=== PATIENT | male | born 1950 | race Caucasian/White ===

== ENCOUNTER 2020-05-03 11:22 | Inpatient (IN) ==
[2020-05-03 12:13] LABS: ABS Lymphocytes 0.8 10^3/ul (1.0-4.8); ABS Monocytes 0.7 10^3/ul (0-0.8); ABS Neutrophils 6.1 10^3/ul (1.5-7.7); Hematocrit 37 % (42-52); Hemoglobin 11.7 g/dL (14.0-18.0); Lymphocyte % 10.1 %; Mean Corpuscular HGB Conc 32 g/dL (31-36); Mean Corpuscular Hemoglobin 29 pg (27-31); Mean Corpuscular Volume 92 fL (80-94); Platelet Count 214 10^3/uL (150-450); Red Cell Distribution Width 21 % (10-15); White Blood Count 7.6 10^3/uL (3.5-10.8)
[2020-05-03 12:25] LABS: ALT 39 U/L (7-52); AST 54 U/L (13-39); Albumin 3.6 g/dL (3.2-5.2); Alkaline Phosphatase 62 U/L (34-104); Anion Gap 12 mmol/L (2-11); Blood Urea Nitrogen 35 mg/dL (6-24); CO2 Carbon Dioxide 20 mmol/L (22-32); Calcium 8.9 mg/dL (8.6-10.3); Chloride 109 mmol/L (101-111); EGFR African American 89.6 (>60); EGFR Non-African American 74.1 (>60); Globulin 3.6 g/dL (2-4); Glucose 137 mg/dL (70-100); Potassium 4.2 mmol/L (3.5-5.0); Sodium 141 mmol/L (135-145); Total Protein 7.2 g/dL (6.4-8.9)
[2020-05-03 12:26] LABS: Activated Partial Thrombo Time 32.2 seconds (26.0-38.0); INR 1.46 (0.82-1.09)
[2020-05-03 12:44] LABS: Troponin I 1.28 ng/mL (<0.03)
[2020-05-03] MEDS ORDERED: NS 0.9% IV ONE (12:51)
[2020-05-03] MEDS ORDERED: Ciprofloxacin 400mg IVPREMIX 400 MG/200 ML BAG IVPB ONE (12:52)
[2020-05-03] MEDS ORDERED: Cefepime 2 GM in Dextrose 2 GM/50 ML BAG IV ONE (12:52)
[2020-05-03] MEDS ORDERED: Vancomycin 1,500 MG in NS 0.9% 250 ml 250 ML IVPB ONE (12:52)
[2020-05-03] MEDS ORDERED: Furosemide 40 mg/4 ml IV VIAL IV SLOW PU ONE (13:28)
[2020-05-03] MEDS ORDERED: cefTRIAXone 1 gm/50 mL NS BAG 1 GM/50 ML BAG IV ONE (13:28)
[2020-05-03 13:55] LABS: Influenza A Molecular Negative (Negative); Influenza B Molecular Negative (Negative)
[2020-05-03] MEDS ORDERED: Nitro 2% OINT (Nitroglycerin) 1 INCH/PAK TOPICAL ONE (13:57)
[2020-05-03] MEDS ORDERED: Heparin DRIP 25,000 UNITS BAG 25,000 UNITS/500 ML BAG IV SCH (14:15)
[2020-05-03] MEDS: Heparin 5000 UNITS/ML 1 mL VIAL IV SCH ×2 (14:49→19:19)
[2020-05-03] MEDS ORDERED: Albuterol HFA INHALER 8 gm MDI INH PRN (15:00)
[2020-05-03 15:11] LABS: ABS Monocytes 0.7 10^3/ul (0-0.8); ABS Neutrophils 6.7 10^3/ul (1.5-7.7); Hematocrit 34 % (42-52); Hemoglobin 11.3 g/dL (14.0-18.0); Lymphocyte % 11.4 %; Mean Corpuscular HGB Conc 33 g/dL (31-36); Mean Corpuscular Hemoglobin 31 pg (27-31); Mean Corpuscular Volume 92 fL (80-94); Platelet Count 205 10^3/uL (150-450); Red Blood Count 3.71 10^6 /uL (4.18-5.48); Red Cell Distribution Width 21 % (10-15); White Blood Count 8.5 10^3/uL (3.5-10.8)
[2020-05-03 15:39] LABS: Blood Urea Nitrogen 35 mg/dL (6-24); EGFR African American 97.5 (>60); EGFR Non-African American 80.6 (>60)
[2020-05-03 16:22] LABS: Troponin I 1.18 ng/mL (<0.03)
[2020-05-03] MEDS: DOXYcycline 100 MG in NS 0.9% 250 ml 250 ML IVPB SCH (16:59)
[2020-05-04 03:19] LABS: Troponin I 1.24 ng/mL (<0.03)
[2020-05-04] MEDS: Heparin 5000 UNITS/ML 1 mL VIAL IV SCH ×2 (03:49→11:39)
[2020-05-04] MEDS: DOXYcycline 100 MG in NS 0.9% 250 ml 250 ML IVPB SCH ×2 (04:14→15:44)
[2020-05-04 05:14] LABS: ABS Lymphocytes 0.9 10^3/ul (1.0-4.8); ABS Monocytes 0.7 10^3/ul (0-0.8); ABS Neutrophils 7.4 10^3/ul (1.5-7.7); Hematocrit 34 % (42-52); Hemoglobin 11.2 g/dL (14.0-18.0); Mean Corpuscular HGB Conc 33 g/dL (31-36); Mean Corpuscular Hemoglobin 30 pg (27-31); Mean Corpuscular Volume 91 fL (80-94); Mean Platelet Volume 8.1 fL (7.4-10.4); Platelet Count 191 10^3/uL (150-450); Red Blood Count 3.74 10^6 /uL (4.18-5.48); Red Cell Distribution Width 21 % (10-15); White Blood Count 9.1 10^3/uL (3.5-10.8)
[2020-05-04 05:23] LABS: Anion Gap 11 mmol/L (2-11); BUN/Creatinine Ratio 39.6 (8-20); Blood Urea Nitrogen 42 mg/dL (6-24); CO2 Carbon Dioxide 22 mmol/L (22-32); Calcium 8.6 mg/dL (8.6-10.3); Chloride 109 mmol/L (101-111); EGFR African American 83.8 (>60); EGFR Non-African American 69.3 (>60); Glucose 112 mg/dL (70-100); Sodium 142 mmol/L (135-145)
[2020-05-04 05:28] LABS: Troponin I 1.44 ng/mL (<0.03)
[2020-05-04] MEDS ORDERED: FLUTICASONE/UMECLIDIN/VILANTER 1 PUFF MDI INH SCH (09:00)
[2020-05-04] MEDS ORDERED: Aspirin EC 81 mg TAB.EC (enteric coated) PO SCH (09:00)
[2020-05-04] MEDS ORDERED: Furosemide 40 mg/4 ml IV VIAL IV ONE (09:37)
[2020-05-04] MEDS: Pantoprazole VIAL 40 MG VIAL IV SCH ×2 (13:45→20:26)
[2020-05-04] MEDS ORDERED: cefTRIAXone 1 gm/50 mL NS BAG 1 GM/50 ML BAG IVPB SCH (14:00)
[2020-05-04 14:17] LABS: ABS Lymphocytes 0.7 10^3/ul (1.0-4.8); ABS Monocytes 0.7 10^3/ul (0-0.8); ABS Neutrophils 8.9 10^3/ul (1.5-7.7); Hematocrit 35 % (42-52); Hemoglobin 11.2 g/dL (14.0-18.0); Lymphocyte % 6.6 %; Mean Corpuscular HGB Conc 32 g/dL (31-36); Mean Corpuscular Hemoglobin 29 pg (27-31); Mean Corpuscular Volume 91 fL (80-94); Mean Platelet Volume 8.5 fL (7.4-10.4); Platelet Count 218 10^3/uL (150-450); Red Blood Count 3.82 10^6 /uL (4.18-5.48); Red Cell Distribution Width 20 % (10-15); White Blood Count 10.3 10^3/uL (3.5-10.8)
[2020-05-04] MEDS: Mometasone/Formoter 100/5 MDI INH SCH ×2 (15:02→19:37)
[2020-05-04] MEDS: SPIRIVA Respimat (tiotropium) 2.5 mcg/inh Inhaler INH SCH (15:02)
[2020-05-05] MEDS: DOXYcycline 100 MG in NS 0.9% 250 ml 250 ML IVPB SCH (04:00)
[2020-05-05 04:35] LABS: ABS Lymphocytes 0.6 10^3/ul (1.0-4.8); ABS Monocytes 0.6 10^3/ul (0-0.8); ABS Neutrophils 7.7 10^3/ul (1.5-7.7); Hematocrit 33 % (42-52); Hemoglobin 11.1 g/dL (14.0-18.0); Lymphocyte % 6.7 %; Mean Corpuscular HGB Conc 33 g/dL (31-36); Mean Corpuscular Hemoglobin 30 pg (27-31); Mean Corpuscular Volume 91 fL (80-94); Mean Platelet Volume 8.1 fL (7.4-10.4); Nucleated Red Blood Cells % 0.1; Platelet Count 171 10^3/uL (150-450); Red Blood Count 3.68 10^6 /uL (4.18-5.48); Red Cell Distribution Width 20 % (10-15)
[2020-05-05 04:54] LABS: BUN/Creatinine Ratio 45.3 (8-20); Calcium 8.7 mg/dL (8.6-10.3); EGFR African American 83.8 (>60); EGFR Non-African American 69.3 (>60); Potassium 3.6 mmol/L (3.5-5.0)
[2020-05-05] MEDS: Pantoprazole VIAL 40 MG VIAL IV SCH ×2 (08:48→22:12)
[2020-05-05] MEDS: Mometasone/Formoter 100/5 MDI INH SCH ×2 (10:47→20:15)
[2020-05-05] MEDS: SPIRIVA Respimat (tiotropium) 2.5 mcg/inh Inhaler INH SCH (10:47)
[2020-05-06 05:56] LABS: ABS Lymphocytes 0.6 10^3/ul (1.0-4.8); ABS Monocytes 0.7 10^3/ul (0-0.8); ABS Neutrophils 6.4 10^3/ul (1.5-7.7); Eosinophil % 0.1 %; Hematocrit 30 % (42-52); Lymphocyte % 7.8 %; Mean Corpuscular HGB Conc 33 g/dL (31-36); Mean Corpuscular Hemoglobin 31 pg (27-31); Mean Corpuscular Volume 92 fL (80-94); Mean Platelet Volume 8.4 fL (7.4-10.4); Nucleated Red Blood Cells % 0.1; Platelet Count 156 10^3/uL (150-450); Red Blood Count 3.26 10^6 /uL (4.18-5.48); Red Cell Distribution Width 20 % (10-15); White Blood Count 7.8 10^3/uL (3.5-10.8)
[2020-05-06 06:12] LABS: EGFR African American 77.9 (>60); EGFR Non-African American 64.3 (>60)
[2020-05-06] MEDS ORDERED: Potassium Chloride LIQUID 20 MEQ/15 ML LIQUID PO ONE (07:58)
[2020-05-06] MEDS: SPIRIVA Respimat (tiotropium) 2.5 mcg/inh Inhaler INH SCH (07:58)
[2020-05-06] MEDS: Mometasone/Formoter 100/5 MDI INH SCH ×2 (07:58→22:03)
[2020-05-06] MEDS: Pantoprazole VIAL 40 MG VIAL IV SCH ×2 (08:14→19:23)
[2020-05-06] MEDS ORDERED: Pneumococcal Vac 23-Polyvalent IM ONE (09:00)
[2020-05-06] MEDS ORDERED: Influenza VAC *QUAD* 2020-21* 0.5 ML SYRINGE IM ONE (09:00)
[2020-05-07 05:58] LABS: ABS Lymphocytes 0.5 10^3/ul (1.0-4.8); ABS Monocytes 0.6 10^3/ul (0-0.8); Eosinophil % 0.4 %; Hematocrit 31 % (42-52); Hemoglobin 9.9 g/dL (14.0-18.0); Mean Corpuscular HGB Conc 33 g/dL (31-36); Mean Corpuscular Hemoglobin 30 pg (27-31); Mean Corpuscular Volume 91 fL (80-94); Mean Platelet Volume 8.4 fL (7.4-10.4); Nucleated Red Blood Cells % 0.1; Platelet Count 177 10^3/uL (150-450); Red Blood Count 3.35 10^6 /uL (4.18-5.48); Red Cell Distribution Width 20 % (10-15); White Blood Count 6.1 10^3/uL (3.5-10.8)
[2020-05-07 06:14] LABS: BUN/Creatinine Ratio 44.1 (8-20); Calcium 7.9 mg/dL (8.6-10.3); EGFR Non-African American 56.2 (>60); Potassium 3.5 mmol/L (3.5-5.0)
[2020-05-07] MEDS: Pantoprazole VIAL 40 MG VIAL IV SCH ×2 (09:35→20:15)
[2020-05-07] MEDS: SPIRIVA Respimat (tiotropium) 2.5 mcg/inh Inhaler INH SCH (09:53)
[2020-05-07] MEDS: Mometasone/Formoter 100/5 MDI INH SCH ×2 (09:53→20:16)
[2020-05-08 06:38] LABS: ABS Eosinophils 0.1 10^3/ul (0-0.6); ABS Lymphocytes 0.6 10^3/ul (1.0-4.8); ABS Monocytes 0.7 10^3/ul (0-0.8); ABS Neutrophils 6.1 10^3/ul (1.5-7.7); Hematocrit 30 % (42-52); Lymphocyte % 8.2 %; Mean Corpuscular HGB Conc 33 g/dL (31-36); Mean Corpuscular Hemoglobin 30 pg (27-31); Mean Corpuscular Volume 91 fL (80-94); Mean Platelet Volume 8.1 fL (7.4-10.4); Platelet Count 175 10^3/uL (150-450); Red Blood Count 3.32 10^6 /uL (4.18-5.48); Red Cell Distribution Width 21 % (10-15); White Blood Count 7.5 10^3/uL (3.5-10.8)
[2020-05-08 06:56] LABS: BUN/Creatinine Ratio 47.2 (8-20); Calcium 7.9 mg/dL (8.6-10.3); EGFR African American 70.6 (>60); EGFR Non-African American 58.3 (>60); Potassium 3.8 mmol/L (3.5-5.0)
[2020-05-08] MEDS: Pantoprazole VIAL 40 MG VIAL IV SCH (09:36)
[2020-05-08] MEDS: SPIRIVA Respimat (tiotropium) 2.5 mcg/inh Inhaler INH SCH (10:02)
[2020-05-08] MEDS: Mometasone/Formoter 100/5 MDI INH SCH (10:02)
[2020-05-08 10:19] VITALS: BP 122/74
== END 2020-05-08 13:24 | disposition home or self-care (01) | DRG 280 ==
LOC: ED 11:22 → ICU 14:57 → MEDTELE 05-05 11:33
PROVIDERS: ADMIT Internal Medicine; ATTEND Internal Medicine